=== PATIENT | male | born 1940 | race Caucasian/White ===

== ENCOUNTER 2023-06-26 15:02 | Emergency (ER) | payer MEDICARE, SELFPAY ==
[2023-06-26 15:12] VITALS: BP 151/79; PULSE 98; RESP 20; TEMP 36.5; O2SAT 98
--- NOTE | 2023-06-26 15:40 | ED.GENADULT ---
HPI - General Adult General Chief complaint: Urogenital-Male Stated complaint: Suprapubic catheter came out Time Seen by Provider: 06/26/23 15:16 History of Present Illness HPI narrative: 82-year-old male presents to the emergency department for evaluation of decreased urinary output. 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 patient states that he fell he is having decreased urine output and then found that his Tian catheter was displaced. Related Data Allergies Allergy/AdvReac Type Severity Reaction Status Date / Time morphine Allergy Mild Verified 07/28/15 21:37 Review of Systems Review of Systems: All systems reviewed & are unremarkable except as noted in HPI and below Exam Narrative: APPEARANCE: Well appearing, no pain, no distress, well-nourished. HEAD: normocephalic, atraumatic. EYES: PERRLA/EOMI, conjunctivae clear. NOSE: Normal no drainage NECK: Supple. No adenopathy, no masses. RESPIRATORY: Airway patent, respirations nonlabored. Clear to auscultation bilaterally, no rales, rhonchi, wheezing. CARDIOVASCULAR: Regular rate and rhythm without murmurs rubs or gallops. ABDOMINAL: well-appearing suprapubic ostomy MUSCULOSKELETAL: Moves all extremities. Strength/ROM intact, No edema, No calf tenderness. NEURO: Alert. Cranial nerves II through XII intact. SKIN: Warm, dry. Normal Color Course Course Emergency Course: 82-year-old male presented to the ED for evaluation of a displaced suprapubic Tian catheter. Tian was replaced without issue and patient had significant urinary output. All questions and concerns were addressed and patient was well-appearing at time of discharge. Patient was started on antibiotics for a suspected urinary tract infection. Vital Signs Vital signs: Vital Signs Temperature 97.7 F 06/26/23 15:12 Pulse Rate 98 06/26/23 15:12 Respiratory Rate 20 06/26/23 15:12 Blood Pressure 151/79 H 06/26/23 15:12 Pulse Oximetry 98 06/26/23 15:12 Oxygen Delivery Room Air 06/26/23 15:12 Temperature 97.7 F 06/26/23 15:12 Pulse Rate 98 06/26/23 15:12 Respiratory Rate 20 06/26/23 15:12 Blood Pressure 151/79 H 06/26/23 15:12 Pulse Oximetry 98 06/26/23 15:12 Oxygen Delivery Room Air 06/26/23 15:12 Procedures Other Procedure Procedure 1: Other Procedure: Patient's suprapubic ostomy was cleansed and a 14 [place] Tian was successfully placed with significant urinary output. Medical Decision Making Differential Diagnosis Differential Diagnosis: Tian catheter issues, urinary retension, UTI Vital Signs Vital Signs: Vital Signs Temperature 97.7 F 06/26/23 15:12 Pulse Rate 98 06/26/23 15:12 Respiratory Rate 20 06/26/23 15:12 Blood Pressure 151/79 H 06/26/23 15:12 Pulse Oximetry 98 06/26/23 15:12 Oxygen Delivery Room Air 06/26/23 15:12 Temperature 97.7 F 06/26/23 15:12 Pulse Rate 98 06/26/23 15:12 Respiratory Rate 20 06/26/23 15:12 Blood Pressure 151/79 H 06/26/23 15:12 Pulse Oximetry 98 06/26/23 15:12 Oxygen Delivery Room Air 06/26/23 15:12 Lab Data Labs: Lab Results 06/26/23 Range/Units 15:43 Urine Color Yellow (Yellow) Urine Appearance Clear (Clear) Urine pH 5.5 (5.0-9.0) Ur Specific Campus 1.015 (1.001-1.035) Urine Protein Trace (Negative) mg/dL Urine Glucose (UA) Negative (Negative) mg/dL Urine Ketones Negative (Negative) mg/dL Ur Blood (Man) 2+ H (Negative) Urine Nitrate Negative (Negative) Urine Bilirubin Negative (Negative) Urine Urobilinogen 1.0 (<2.0) mg/dL Leukocyte Esterase Rfl Trace H (Negative) YASHIRA/UL Urine RBC 21-50 H (0-2) /hpf Urine WBC 6-10 H /hpf Ur Squamous Epith Cells None seen (Few) /hpf Urine Bacteria None seen /hpf Urine Casts 0-2 Discharge Plan Discharge Clinical Impression: Suprapubic catheter d
[2023-06-26 16:13] LABS: Appearance Urine Clear (Clear); Bacteria Urine None Seen /hpf; Bilirubin Urine Negative (Negative); Blood Urine 2+ (Negative); Color Urine Yellow (Yellow); Glucose Urine UA Negative (Negative); Ketones Urine Negative (Negative); Leukocyte Esterase Ur Trace LEU/UL (Negative); Nitrate Urine Negative (Negative); Non Pathogenic Casts 0-2; Protein Urine Trace mg/dL (Negative); RBC Urine 21-50 /hpf (0-2); Specific Grav Ur 1.015 (1.001-1.035); Squamous Epithelial Cell Urine None seen /hpf (Few); pH Urine 5.5 (5.0-9.0)
[2023-06-26 16:14] LABS: Add Urine Microscopic? YES
== END 2023-06-26 17:08 | disposition home or self-care (01) ==
PROVIDERS: Emergency Provider Emergency Medicine
DX: T83.020A Displacement of cystostomy catheter, initial encounter (principal); N39.0 Urinary tract infection, site not specified; Y84.6 Urinary catheterization as the cause of abnormal reaction of the patient, or of later complication, without mention of misadventure at the time of the procedure
CPT/HCPCS: 51705; 81001; 87086; 99283

== ENCOUNTER 2023-07-14 21:02 | Emergency (ER) | payer MEDICARE, SELFPAY ==
[2023-07-14 21:19] VITALS: BP 161/84; PULSE 81; RESP 16; TEMP 37.1; O2SAT 100
[2023-07-14 21:42] LABS: Basophils Percent Auto 0.5 % (0.2-1.2); Eosinophils Absolute Auto 0.2 K/mm3 (0-0.3); Eosinophils Percent Auto 2.2 % (0-4.4); Hematocrit 43.7 % (42.0-52.0); Immature Granulocyte Absolute 0.03 K/mm3 (0.00-0.031); Immature Granulocyte Percent A 0.4 % (0-0.5); Lymphocytes Absolute Auto 0.95 K/mm3 (0.9-3.2); Lymphocytes Percent Auto 11.2 % (18.3-44.2); Mean Corpuscular Hemoglobin 30.4 pg (26-34); Mean Corpuscular Volume 94.8 fl (80-100); Mean Platelet Volume 9.2 fl (7.4-10.4); Monocytes Percent Auto 11.2 % (2.6-8.5); Neutrophils Absolute Auto 6.3 K/mm3 (1.3-6.7); Neutrophils Percent Auto 74.5 % (45.5-73.1); Platelet Count Result 244 k/mm3 (150-375); Red Blood Count 4.61 M/mm3 (4.6-6.20); Red Cell Distribution Width 13.9 % (11.5-14.5); White Blood Count 8.5 K/mm3 (4.5-10.0)
[2023-07-14 21:49] LABS: Appearance Urine Clear (Clear); Bacteria Urine None Seen /hpf; Bilirubin Urine Negative (Negative); Blood Urine 1+ (Negative); Color Urine Yellow (Yellow); Glucose Urine UA Negative (Negative); Ketones Urine Negative (Negative); Leukocyte Esterase Ur Trace LEU/UL (Negative); Nitrate Urine Negative (Negative); Non Pathogenic Casts 0-2; Protein Urine Negative (Negative); RBC Urine 0-2 /hpf (0-2); Specific Grav Ur 1.005 (1.001-1.035); Squamous Epithelial Cell Urine None seen /hpf (Few); Urobilinogen Urine 0.2 mg/dL (<2.0); WBC Urine 0-5 /hpf; pH Urine 6.5 (5.0-9.0)
[2023-07-14 21:50] LABS: Add Urine Microscopic? YES
[2023-07-14 21:52] LABS: Alanine Aminotransferase 37 U/L (6-50); Albumin Level 4.4 g/dL (3.5-5.1); Alkaline Phosphatase 123 U/L (38-126); Anion Gap 8 mmol/L (8-16); Aspartate Amino Transferase 32 U/L (17-59); Bilirubin,Total 0.7 mg/dL (0.2-1.3); Blood Urea Nitrogen 17 mg/dL (9-20); Calcium 9.4 mg/dL (8.4-10.2); Carbon Dioxide 25 mmol/L (22-30); Chloride 106 mmol/L (98-107); Estimated CRCL calculation 47 ml/min; Estimated Glomerular Filt Rate > 60; Glucose 109 mg/dL (65-110); Sodium 139 mmol/L (137-145)
--- NOTE | 2023-07-15 00:20 | ED.GENADULT ---
HPI - General Adult General Chief complaint: Urogenital-Male Stated complaint: catheter issues Time Seen by Provider: 07/14/23 23:29 History of Present Illness HPI narrative: patient has extensive past urological history. And June, 2 weeks ago he had a procedure to reconstruct and allow him to urinate out of his penis without a Tian. Suprapubic catheter had been placed and was closed off at that time. Patient was told if he had any difficulty urinating to open up the suprapubic catheter. Earlier this evening he started developed lower abdominal discomfort left flank pain. He was unable to your knee as much as he tried. He on clamped the straight cath has had couple bags of clear urine out since then. He is feeling much better and has no complaints. He was told by his urologist to come to the emergency department if he had any such problems. I offered to call his urologist in [facility] but he prefers to call them in morning. He is accompanied by his . Patient and his are very pleasant he is in no distress. Related Data Allergies Allergy/AdvReac Type Severity Reaction Status Date / Time morphine Allergy Mild Verified 07/28/15 21:37 Review of Systems Review of Systems: negative Except what is documented in the HPI Exam Narrative: GENERAL: Well-appearing, well-nourished, and in no acute distress. HEAD: Normocephalic, atraumatic. EYES: PERRLA and EOMI. ENT: Nares clear, no rhinorrhea or epistaxis. Mucous membranes moist. NECK: Supple. CHEST: Clear to auscultation. No respiratory distress. HEART: Regular rate and rhythm. ABDOMEN: Soft, nontender, nondistended. EXTREMITIES: Normal range of motion. No edema. SKIN: Warm, dry, no rash. NEURO: No focal deficits. Alert and oriented x3. PSYCH: Normal mood and affect. Course Vital Signs Vital signs: Vital Signs Temperature 37.1 C 07/14/23 21:19 Pulse Rate 81 07/14/23 21:19 Respiratory Rate 16 07/14/23 21:19 Blood Pressure 161/84 H 07/14/23 21:19 Pulse Oximetry 100 07/14/23 21:19 Oxygen Delivery Room Air 07/14/23 21:19 Temperature 37.1 C 07/14/23 21:19 Pulse Rate 81 07/14/23 21:19 Respiratory Rate 16 07/14/23 21:19 Blood Pressure 161/84 H 07/14/23 21:19 Pulse Oximetry 100 07/14/23 21:19 Oxygen Delivery Room Air 07/14/23 21:19 Medical Decision Making Vital Signs Vital Signs: Vital Signs Temperature 37.1 C 07/14/23 21:19 Pulse Rate 81 07/14/23 21:19 Respiratory Rate 16 07/14/23 21:19 Blood Pressure 161/84 H 07/14/23 21:19 Pulse Oximetry 100 07/14/23 21:19 Oxygen Delivery Room Air 07/14/23 21:19 Temperature 37.1 C 07/14/23 21:19 Pulse Rate 81 07/14/23 21:19 Respiratory Rate 16 07/14/23 21:19 Blood Pressure 161/84 H 07/14/23 21:19 Pulse Oximetry 100 07/14/23 21:19 Oxygen Delivery Room Air 07/14/23 21:19 Lab Data 07/14/23 21:35 07/14/23 21:35 Labs: Lab Results 07/14/23 07/14/23 Range/Units 21:35 21:36 WBC 8.5 (4.5-10.0) K/mm3 RBC 4.61 (4.6-6.20) M/mm3 Hgb 14.0 (14.0-18.0) g/dL Hct 43.7 (42.0-52.0) % MCV 94.8 (80-100) fl MCH 30.4 (26-34) pg MCHC 32.0 (32-36) g/dl RDW 13.9 (11.5-14.5) % Plt Count 244 (150-375) k/mm3 MPV 9.2 (7.4-10.4) fl Immature Gran % (Auto) 0.4 (0-0.5) % Neut % (Auto) 74.5 H (45.5-73.1) % Lymph % (Auto) 11.2 L (18.3-44.2) % Pepin % (Auto) 11.2 H (2.6-8.5) % Eos % (Auto) 2.2 (0-4.4) % Baso % (Auto) 0.5 (0.2-1.2) % Lymph # (Auto) 0.95 (0.9-3.2) K/mm3 Pepin # (Auto) 1.0 H (0.1-0.6) K/mm3 Eos # (Auto) 0.2 (0-0.3) K/mm3 Baso # (Auto) 0.0 (0.0-0.1) K/mm3 Abs Immat Gran (auto) 0.03 (0.00-0.031) K/mm3 Absolute Neuts (auto) 6.3 (1.3-6.7) K/mm3 Absolute Nucleated RBC 0.0 (0.0-0.012) K/mm3 Nucleated RBC % 0.0 (0.0-0.2) % Sodium 139 (137-145) mmol/L Potassium 4.0 (3.4-5.0) mmol/L Chlorid
[2023-07-15 00:33] VITALS: BP 158/79; PULSE 84; RESP 17; O2SAT 100
== END 2023-07-15 00:36 | disposition home or self-care (01) ==
PROVIDERS: Emergency Provider Emergency Medicine; PCP Pediatrics
DX: R33.9 Retention of urine, unspecified (principal)
CPT/HCPCS: 36415; 80053; 81001; 85025; 99283